=== PATIENT | male | born 1995 | race Caucasian/White ===

== ENCOUNTER 2017-10-06 15:56 | Emergency (ER) | payer OTHER ==
--- NOTE | 2017-10-06 16:54 | EDPHY ---
H & P Stated Complaint: yesterday accidentally hit in r eye with wrench/denies loc or neck pain Time Seen by Provider: 10/06/17 16:15 HPI/ROS: Chief complaint: Right-sided facial injury History of present illness: This is a 21-year-old male who presents to the emergency department for a right-sided facial injury. Yesterday he was using a wrench to tighten a part on a car when it slipped off and struck him around his eye. Since then he has some mild discomfort. There has been associated bruising. No reported headache. No neck pain. No neurologic symptoms such as paresthesias, weakness or paralysis or bowel or bladder dysfunction. He did not lose consciousness. He denies any eye discomfort, reports normal visual acuity. - Personal History Current Tetanus Diphtheria and Acellular Pertussis (TDAP): No - Medical/Surgical History Hx Asthma: No Hx Chronic Respiratory Disease: No Hx Diabetes: No Hx Cardiac Disease: No Hx Renal Disease: No Hx Cirrhosis: No Hx Alcoholism: No Hx HIV/AIDS: No Hx Splenectomy or Spleen Trauma: No Other PMH: denies - Social History Smoking Status: Current some day smoker - Physical Exam Exam: General: Alert, nontoxic Eyes: No injection. No subconjunctival hemorrhage. No hyphema. PERRLA. EOM intact. Red reflex present bilaterally. Musculoskeletal: No tenderness to the periorbital regions, no bony deformity or crepitus. Skin: Contusion around the right eye. Constitutional: Initial Vital Signs Temperature (C) 36.7 C 10/06/17 16:00 Heart Rate 65 10/06/17 16:00 Respiratory Rate 16 10/06/17 16:00 Blood Pressure 122/80 H 10/06/17 16:00 O2 Sat (%) 96 10/06/17 16:00 O2 Delivery Mode Room Air Allergies/Adverse Reactions: No Known Allergies Allergy (Unverified 10/06/17 16:00) Home Medications: Medication Instructions Recorded Risperidone 10/06/17 Medical Decision Making - Diagnostics Imaging Results: Imaging Impressions Face CT 10/06/17 16:19 Impression: 1. No maxillofacial fracture. 2. No orbital or sinus wall fracture. 3. No retro-orbital hematoma. Findings and recommendations discussed with Emergency Department physician, Davion Bloom PA-C at 1654 hours on October 06, 2017. Final report concurs with initial preliminary interpretation. Imaging: Discussed imaging studies w/ score caller Radiologist ED Course/Re-evaluation: Patient seen under the supervision of my secondary supervising physician Dr. Arnold Nieves. Patient presents for an injury around his right eye. CT scan is negative. Visual acuities are normal. This appears to be a contusion. He is to follow up with worker's compensation for recheck. Home care is discussed. Return precautions are given. Differential Diagnosis: Included but not limited to contusion, bony fracture, unlikely intracranial injury Departure - Departure Disposition: Home, Routine, Self-Care Clinical Impression: Black eye of right side Qualifiers: Encounter type: initial encounter Qualified Code(s): S00.11XA - Contusion of right eyelid and periocular area, initial encounter Condition: Good Instructions: Black Eye (ED) Additional Instructions: Follow-up with worker's compensation for recheck Ice the injury, 20 min on, 3 times daily for the next 2 days Use ibuprofen 600 mg 3 times a day for the next 1-2 days for pain control If symptoms worsen or new symptoms develop return to the emergency room for recheck Referrals: NONE *PRIMARY CARE P,. [Primary Care Provider] - As per Instructions [facility],. [Clinic] - As per Instructions
[2017-10-06 17:03] VITALS: BP 124/76
== END 2017-10-06 17:03 | disposition home or self-care (01) ==
DX: S00.11XA Contusion of right eyelid and periocular area, initial encounter (principal); F17.200 Nicotine dependence, unspecified, uncomplicated; W22.8XXA Striking against or struck by other objects, initial encounter